=== PATIENT | female | born 1930 | race Caucasian/White ===

== ENCOUNTER 2021-03-27 18:30 | Inpatient (IN) | payer OTHER, MEDICARE ==
[2021-03-27 18:54] VITALS: BMI 19.3
[2021-03-27] MEDS ORDERED: SODIUM CHLORIDE 0.9% 500 ML INFUS.BAG IV ONE (19:14)
[2021-03-27] MEDS ORDERED: ACETAMINOPHEN 1000 MG/100 ML VIAL IVPB ONE (19:14)
[2021-03-27] MEDS ORDERED: ACETAMINOPHEN INJECTION 100 ML IVPB ONE (19:52)
[2021-03-27 20:22] LABS: BASO % 0.2 % (0-2.0); HEMATOCRIT 41.8 % (32.4-45.2); HEMOGLOBIN 13.9 GM/dL (10.7-15.3); LYMPH % 6.3 % (8-40); MCH 30.8 pg (25.7-33.7); MCHC 33.3 g/dl (32.0-36.0); MEAN CELL VOLUME 92.6 fl (80-96); MEAN PLT VOLUME 7.8 fl (7.5-11.1); MONO % 8.6 % (3.8-10.2); NEUT % 84.9 % (42.8-82.8); PLATELET COUNT 271 10^3/uL (134-434); RBC 4.51 M/mm3 (3.60-5.2); RDW 14.1 % (11.6-15.6); WHITE BLOOD COUNT 14.5 K/mm3 (4.0-10.0)
[2021-03-27 20:28] LABS: INR 1.07 (0.83-1.09)
[2021-03-27 20:31] LABS: ACTIVATED PTT 30.7 SECONDS (25.2-36.5)
[2021-03-27 20:55] LABS: ALBUMIN 4.2 g/dl (3.4-5.0); BLOOD UREA NITROGEN 15.7 mg/dL (7-18); CALCIUM 10.1 mg/dL (8.5-10.1); MAGNESIUM 1.8 mg/dL (1.8-2.4)
[2021-03-27 20:59] LABS: CREATININE 0.9 mg/dL (0.55-1.3)
[2021-03-27 21:00] LABS: BILIRUBIN,TOTAL 1.5 mg/dL (0.2-1); TOT PROT 8.8 g/dl (6.4-8.2)
[2021-03-27] MEDS ORDERED: ACETAMINOPHEN 325 MG TABLET (FP) PO PRN (22:43)
[2021-03-27] MEDS ORDERED: SODIUM CHLORIDE 1,000 ML IV SCH (22:45)
[2021-03-27 23:26] LABS: EPI CELLS 6 /uL (0-25.1); HYALINE CASTS 1 /uL (0-3.1); PH,URINE 6.5 (5.0-8.0); URINE APPEARANCE TURBID; URINE BILIRUBIN NEGATIVE (NEGATIVE); URINE COLOR YELLOW; URINE GLUCOSE (UA) NEGATIVE (NEGATIVE); URINE KETONE TRACE (NEGATIVE); URINE LEUK ESTERASE 1+ (NEGATIVE); URINE NITRITE NEGATIVE (NEGATIVE); URINE PROTEIN 3+ (NEGATIVE); URINE WBC 470 /uL (0-25.8)
[2021-03-28 02:23] LABS: LACTIC ACID 3.3 mmol/L (0.4-2.0)
[2021-03-28] MEDS ORDERED: SODIUM CHLORIDE 1,000 ML IV SCH (02:36)
[2021-03-28] MEDS ORDERED: PIPERACILLIN/TAZOB 3.375 GM 3.375 GM in DEXTROSE 5%-WATER - 50 ML IVPB ONE (05:23)
[2021-03-28] MEDS ORDERED: PIPERACILLIN/TAZOB 3.375 GM 3.375 GM/50 ML BAG IVPB ONE (06:02)
[2021-03-28 06:27] LABS: LACTIC ACID 3.5 mmol/L (0.4-2.0)
[2021-03-28 06:56] LABS: HEMATOCRIT 37.5 % (32.4-45.2); HEMOGLOBIN 12.5 GM/dL (10.7-15.3); MCH 31.2 pg (25.7-33.7); MCHC 33.3 g/dl (32.0-36.0); MEAN CELL VOLUME 93.5 fl (80-96); MEAN PLT VOLUME 7.9 fl (7.5-11.1); PLATELET COUNT 259 10^3/uL (134-434); RBC 4.01 M/mm3 (3.60-5.2); RDW 14.3 % (11.6-15.6); WHITE BLOOD COUNT 17.7 K/mm3 (4.0-10.0)
[2021-03-28 07:16] LABS: BLOOD UREA NITROGEN 17.3 mg/dL (7-18); CALCIUM 8.7 mg/dL (8.5-10.1)
[2021-03-28 07:17] LABS: MAGNESIUM 1.5 mg/dL (1.8-2.4)
[2021-03-28 07:20] LABS: PHOSPHOROUS 3.1 mg/dL (2.5-4.9)
[2021-03-28] MEDS ORDERED: amLODIPine BESYLATE 5 MG TABLET (FP) ONE (09:19)
[2021-03-28] MEDS ORDERED: ASPIRIN 81 MG CHEWABLE TABLETS ONE (09:19)
[2021-03-28] MEDS ORDERED: ENOXAPARIN NA (PORCINE) 30 MG/0.3 ML DISP.SYRIN SQ ONE (09:20)
[2021-03-28] MEDS: ENOXAPARIN NA (PORCINE) 30 MG/0.3 ML DISP.SYRIN SQ SCH (09:32)
[2021-03-28] MEDS: amLODIPine BESYLATE 10 MG TABLET (FP) PO SCH (09:32)
[2021-03-28] MEDS: CINACALCET HCL 30 MG TAB (FP) PO SCH (09:32)
[2021-03-28] MEDS: ALLOPURINOL 100 MG TABLET (FP) PO SCH (09:32)
[2021-03-28] MEDS: ASPIRIN 81 MG CHEWABLE TABLETS PO SCH (09:32)
[2021-03-28 09:43] LABS: LACTIC ACID 4.1 mmol/L (0.4-2.0)
[2021-03-28] MEDS ORDERED: VANCOMYCIN 1,000 MG in DEXTROSE 5%-WATER - 250 ML IVPB ONE (10:46)
[2021-03-28] MEDS ORDERED: VANCOMYCIN 1 GRAM (PRE-DOCKED) 1,000 MG/250 ML BAG IVPB ONE ×2 (11:03→16:17)
[2021-03-28] MEDS ORDERED: CEFTRIAXONE 1 GM/50 ML BAG ONE (11:03)
[2021-03-28] MEDS: CEFTRIAXONE 1 GM in DEXTROSE 5%-WATER - 50 ML IVPB SCH (11:25)
[2021-03-28] MEDS ORDERED: POTASSIUM CHLORIDE TABS 20 MEQ TABLET.ER (FP) PO ONE (13:00)
[2021-03-28] MEDS: LACTATED RINGERS SOLUTION 1,000 ML/1,000 ML INFUS.BAG IV SCH (14:09)
[2021-03-28] MEDS: METOPROLOL TARTRATE 50 MG TABLET (FP) PO SCH (23:05)
[2021-03-29] MEDS ORDERED: METOPROLOL TARTRATE 25 MG TABLET (FP) PO ONE (04:37)
[2021-03-29 07:20] LABS: BASO % 0.1 % (0-2.0); EOS % 0.1 % (0-4.5); HEMATOCRIT 33.1 % (32.4-45.2); HEMOGLOBIN 11.1 GM/dL (10.7-15.3); LYMPH % 8.7 % (8-40); MCH 31.2 pg (25.7-33.7); MCHC 33.7 g/dl (32.0-36.0); MEAN CELL VOLUME 92.4 fl (80-96); MONO % 9.5 % (3.8-10.2); NEUT % 81.6 % (42.8-82.8); PLATELET COUNT 232 10^3/uL (134-434); RBC 3.58 M/mm3 (3.60-5.2)
[2021-03-29 07:21] LABS: CALCIUM 8.4 mg/dL (8.5-10.1)
[2021-03-29 07:22] LABS: BLOOD UREA NITROGEN 18.5 mg/dL (7-18)
[2021-03-29 07:25] LABS: CREATININE 0.8 mg/dL (0.55-1.3)
[2021-03-29] MEDS ORDERED: DEXTROSE 5%-WATER - 50 ML IVPB ONE (10:16)
[2021-03-29] MEDS ORDERED: cefTRIAXone SODIUM 1 GM VIAL ONE (10:16)
[2021-03-29] MEDS: LOSARTAN POTASSIUM 50 MG TABLET PO SCH (10:25)
[2021-03-29] MEDS: amLODIPine BESYLATE 10 MG TABLET (FP) PO SCH (10:25)
[2021-03-29] MEDS: ASPIRIN 81 MG CHEWABLE TABLETS PO SCH (10:25)
[2021-03-29] MEDS: CEFTRIAXONE 1 GM in DEXTROSE 5%-WATER - 50 ML IVPB SCH (10:25)
[2021-03-29] MEDS: ALLOPURINOL 100 MG TABLET (FP) PO SCH (10:25)
[2021-03-29] MEDS: METOPROLOL TARTRATE 50 MG TABLET (FP) PO SCH ×2 (10:25→21:18)
[2021-03-29] MEDS ORDERED: PT OWN MED DRAWER 7, Y5N ONE (10:32)
[2021-03-29] MEDS: ENOXAPARIN NA (PORCINE) 30 MG/0.3 ML DISP.SYRIN SQ SCH (10:33)
[2021-03-29] MEDS: CINACALCET HCL 30 MG TAB (FP) PO SCH (11:47)
[2021-03-29] MEDS: LACTATED RINGERS SOLUTION 1,000 ML/1,000 ML INFUS.BAG IV SCH (13:37)
[2021-03-30] MEDS ORDERED: cefTRIAXone SODIUM 1 GM VIAL ONE (08:04)
[2021-03-30] MEDS ORDERED: DEXTROSE 5%-WATER - 50 ML IVPB ONE (08:04)
[2021-03-30] MEDS: ENOXAPARIN NA (PORCINE) 30 MG/0.3 ML DISP.SYRIN SQ SCH (08:59)
[2021-03-30] MEDS: ALLOPURINOL 100 MG TABLET (FP) PO SCH (08:59)
[2021-03-30] MEDS: LOSARTAN POTASSIUM 50 MG TABLET PO SCH (09:00)
[2021-03-30] MEDS: CEFTRIAXONE 1 GM in DEXTROSE 5%-WATER - 50 ML IVPB SCH (09:00)
[2021-03-30] MEDS: amLODIPine BESYLATE 10 MG TABLET (FP) PO SCH (09:00)
[2021-03-30] MEDS: METOPROLOL TARTRATE 50 MG TABLET (FP) PO SCH ×2 (09:00→21:10)
[2021-03-30] MEDS: ASPIRIN 81 MG CHEWABLE TABLETS PO SCH (09:00)
[2021-03-30] MEDS: CINACALCET HCL 30 MG TAB (FP) PO SCH (09:05)
[2021-03-30] MEDS: LACTATED RINGERS SOLUTION 1,000 ML/1,000 ML INFUS.BAG IV SCH ×2 (15:56→18:07)
[2021-03-31 07:27] LABS: BASO % 0.3 % (0-2.0); HEMATOCRIT 33.1 % (32.4-45.2); LYMPH % 9.6 % (8-40); MCH 31.3 pg (25.7-33.7); MCHC 33.3 g/dl (32.0-36.0); MEAN PLT VOLUME 8.4 fl (7.5-11.1); MONO % 9.4 % (3.8-10.2); NEUT % 79.7 % (42.8-82.8); PLATELET COUNT 226 10^3/uL (134-434); RBC 3.52 M/mm3 (3.60-5.2); RDW 13.9 % (11.6-15.6); WHITE BLOOD COUNT 13.3 K/mm3 (4.0-10.0)
[2021-03-31] MEDS ORDERED: DEXTROSE 5%-WATER - 50 ML IVPB ONE (08:04)
[2021-03-31] MEDS ORDERED: cefTRIAXone SODIUM 1 GM VIAL ONE (08:04)
[2021-03-31] MEDS: ASPIRIN 81 MG CHEWABLE TABLETS PO SCH (09:29)
[2021-03-31] MEDS: CEFTRIAXONE 1 GM in DEXTROSE 5%-WATER - 50 ML IVPB SCH (09:29)
[2021-03-31] MEDS: ENOXAPARIN NA (PORCINE) 30 MG/0.3 ML DISP.SYRIN SQ SCH (09:29)
[2021-03-31] MEDS: LOSARTAN POTASSIUM 50 MG TABLET PO SCH (09:29)
[2021-03-31] MEDS: ALLOPURINOL 100 MG TABLET (FP) PO SCH (09:29)
[2021-03-31] MEDS: amLODIPine BESYLATE 10 MG TABLET (FP) PO SCH (09:30)
[2021-03-31] MEDS: CINACALCET HCL 30 MG TAB (FP) PO SCH (09:30)
[2021-03-31] MEDS: METOPROLOL TARTRATE 50 MG TABLET (FP) PO SCH ×2 (09:30→21:25)
[2021-03-31] MEDS: LACTATED RINGERS SOLUTION 1,000 ML/1,000 ML INFUS.BAG IV SCH (09:30)
[2021-04-01 07:08] LABS: BASO % 0.2 % (0-2.0); EOS % 0.7 % (0-4.5); HEMATOCRIT 32.5 % (32.4-45.2); HEMOGLOBIN 10.9 GM/dL (10.7-15.3); LYMPH % 10.4 % (8-40); MCH 31.4 pg (25.7-33.7); MCHC 33.5 g/dl (32.0-36.0); MEAN CELL VOLUME 93.7 fl (80-96); MEAN PLT VOLUME 8.1 fl (7.5-11.1); MONO % 9.9 % (3.8-10.2); NEUT % 78.8 % (42.8-82.8); PLATELET COUNT 235 10^3/uL (134-434); RBC 3.47 M/mm3 (3.60-5.2); RDW 13.9 % (11.6-15.6); WHITE BLOOD COUNT 12.4 K/mm3 (4.0-10.0)
[2021-04-01 07:20] LABS: CALCIUM 7.7 mg/dL (8.5-10.1)
[2021-04-01 07:22] LABS: BLOOD UREA NITROGEN 19.6 mg/dL (7-18)
[2021-04-01 07:24] LABS: CREATININE 0.7 mg/dL (0.55-1.3)
[2021-04-01 07:26] LABS: BILIRUBIN,TOTAL 0.6 mg/dL (0.2-1)
[2021-04-01 07:51] LABS: ALBUMIN 2.7 g/dl (3.4-5.0); TOT PROT 6.2 g/dl (6.4-8.2)
[2021-04-01] MEDS ORDERED: cefTRIAXone SODIUM 1 GM VIAL ONE (09:41)
[2021-04-01] MEDS ORDERED: PT OWN MED DRAWER 7, Y5N ONE (09:41)
[2021-04-01] MEDS ORDERED: DEXTROSE 5%-WATER - 50 ML IVPB ONE (09:41)
[2021-04-01] MEDS: CINACALCET HCL 30 MG TAB (FP) PO SCH (10:04)
[2021-04-01] MEDS: ENOXAPARIN NA (PORCINE) 30 MG/0.3 ML DISP.SYRIN SQ SCH (10:04)
[2021-04-01] MEDS: LOSARTAN POTASSIUM 50 MG TABLET PO SCH (10:05)
[2021-04-01] MEDS: METOPROLOL TARTRATE 50 MG TABLET (FP) PO SCH ×2 (10:05→22:30)
[2021-04-01] MEDS: ALLOPURINOL 100 MG TABLET (FP) PO SCH (10:05)
[2021-04-01] MEDS: amLODIPine BESYLATE 10 MG TABLET (FP) PO SCH (10:05)
[2021-04-01] MEDS: CEFTRIAXONE 1 GM in DEXTROSE 5%-WATER - 50 ML IVPB SCH (10:05)
[2021-04-01] MEDS: ASPIRIN 81 MG CHEWABLE TABLETS PO SCH (10:05)
[2021-04-02] MEDS ORDERED: cefTRIAXone SODIUM 1 GM VIAL ONE (09:03)
[2021-04-02] MEDS ORDERED: PT OWN MED DRAWER 7, Y5N ONE (09:03)
[2021-04-02] MEDS ORDERED: DEXTROSE 5%-WATER - 50 ML IVPB ONE (09:04)
[2021-04-02] MEDS: amLODIPine BESYLATE 10 MG TABLET (FP) PO SCH (09:20)
[2021-04-02] MEDS: ENOXAPARIN NA (PORCINE) 30 MG/0.3 ML DISP.SYRIN SQ SCH (09:20)
[2021-04-02] MEDS: ALLOPURINOL 100 MG TABLET (FP) PO SCH (09:21)
[2021-04-02] MEDS: ASPIRIN 81 MG CHEWABLE TABLETS PO SCH (09:21)
[2021-04-02] MEDS: LOSARTAN POTASSIUM 50 MG TABLET PO SCH (09:21)
[2021-04-02] MEDS: CINACALCET HCL 30 MG TAB (FP) PO SCH (09:21)
[2021-04-02] MEDS: CEFTRIAXONE 1 GM in DEXTROSE 5%-WATER - 50 ML IVPB SCH (09:21)
[2021-04-02] MEDS: METOPROLOL TARTRATE 50 MG TABLET (FP) PO SCH ×2 (09:21→21:38)
[2021-04-02 12:32] LABS: CALCIUM 7.7 mg/dL (8.5-10.1)
[2021-04-02 12:33] LABS: BLOOD UREA NITROGEN 18.4 mg/dL (7-18)
[2021-04-02 12:36] LABS: CREATININE 0.8 mg/dL (0.55-1.3)
[2021-04-03] MEDS ORDERED: DEXTROSE 5%-WATER - 50 ML IVPB ONE (08:02)
[2021-04-03] MEDS ORDERED: cefTRIAXone SODIUM 1 GM VIAL ONE (08:02)
[2021-04-03 08:49] VITALS: BP 143/67; PULSE 82; TEMP 97.6
[2021-04-03] MEDS: ALLOPURINOL 100 MG TABLET (FP) PO SCH (09:59)
[2021-04-03] MEDS: ENOXAPARIN NA (PORCINE) 30 MG/0.3 ML DISP.SYRIN SQ SCH (09:59)
[2021-04-03] MEDS: ASPIRIN 81 MG CHEWABLE TABLETS PO SCH (09:59)
[2021-04-03] MEDS: LOSARTAN POTASSIUM 50 MG TABLET PO SCH (09:59)
[2021-04-03] MEDS: amLODIPine BESYLATE 10 MG TABLET (FP) PO SCH (10:00)
[2021-04-03] MEDS: METOPROLOL TARTRATE 50 MG TABLET (FP) PO SCH (10:00)
[2021-04-03] MEDS: CEFTRIAXONE 1 GM in DEXTROSE 5%-WATER - 50 ML IVPB SCH (10:00)
[2021-04-03] MEDS: CINACALCET HCL 30 MG TAB (FP) PO SCH (10:07)
== END 2021-04-03 11:45 | DRG 562 ==
LOC: JER 18:30 → JERBED 22:16 → J4W 03-28 23:32
PROVIDERS: ATTEND Family Medicine
DX: S82.132A Displaced fracture of medial condyle of left tibia, initial encounter for closed fracture (principal); G93.41 Metabolic encephalopathy; J69.0 Pneumonitis due to inhalation of food and vomit; E87.2 Acidosis; N39.0 Urinary tract infection, site not specified; J98.11 Atelectasis; I10 Essential (primary) hypertension; D72.829 Elevated white blood cell count, unspecified; M25.462 Effusion, left knee; M25.552 Pain in left hip; M25.551 Pain in right hip; I45.10 Unspecified right bundle-branch block; R91.1 Solitary pulmonary nodule; B96.1 Klebsiella pneumoniae [K. pneumoniae] as the cause of diseases classified elsewhere; B96.20 Unspecified Escherichia coli [E. coli] as the cause of diseases classified elsewhere; W06.XXXA Fall from bed, initial encounter; Y92.098 Other place in other non-institutional residence as the place of occurrence of the external cause
CPT/HCPCS: 36415; 70450-TC; 71250-TC; 72125-TC; 72170-TC-FY; 73523-TC-FY; 73560-TC-LT-FY; 73560-TC-RT-FY; 80048; 80053; 81003; 82550; 82553; 83605; 83735; 84100; 84436; 84443; 84479; 84484; 85025; 85027; 85610; 85730; 86850; 86900; 86901; 87040; 87086; 87186; 93005; 93010; 93970-TC; 97116-GP; 97162-GP; 99285-25; C9803; J0131; U0003; U0005